=== PATIENT | male | born 1940 | race Hispanic/Latino ===

== ENCOUNTER 2018-09-03 16:45 | Emergency (ER) | payer MEDICARE ==
--- NOTE | 2018-09-03 18:46 | RAD ---
ACUTE ABDOMINAL SERIES: 09/03/2018 PROVIDED CLINICAL HISTORY: Pain. COMPARISON: None. FINDINGS: There is abnormal opacity present at the right lung apex, with an associated destructive process invo lving the posterior right third rib. Supraclavicular lymph node enlargement on the right may also be present. Pleural-based density at the right lateral hemithorax or inferiorly is also suspected. Ca rdiac and mediastinal silhouette are within normal limits. No pleural fluid or pneumothorax apparent . The abdominal bowel gas pattern is nonspecific. There is no evidence for pneumoperitoneum. Surgical clips overly the right lower abdomen. No radiographically apparent urinary tract calculi. IMPRESSION: 1. Abnormal opacities involving the right hemithorax with associated destruction involving the right posterior third rib, compatible with neoplasm. Correlation with chest CT is recommended. 2. Nonspecific bowel gas pattern. POS: [facility]
[2018-09-03 19:41] LABS: #Basophils 0.1 thou/uL (0.0-0.2); #Eosinphils 0.1 thou/uL (0.0-0.7); #Lymphocytes 2.8 thou/uL (1.20-3.40); #Monocytes 0.8 thou/uL (0.11-0.59); #Neutrophils 11.1 thou/uL (1.40-6.50); %Basophils 0.3 % (0.0-1.0); %Eosinophils 0.6 % (0.0-10.0); %Lymphocytes 18.7 % (21.0-51.0); %Monocytes 5.3 % (0.0-10.0); Hemoglobin 16.3 g/dL (14.0-18.0); Mean Corpuscular HGB CONC 34.1 g/dL (32.0-36.0); Mean Corpuscular Hemoglobin 30.4 pg (27.0-31.0); Mean Corpuscular Volume 89.1 fL (78.0-98.0); Platelet Count 259 thou/uL (130-400); RBC Distribution Width 12.4 % (11.5-14.5); Red Blood Cell (RBC) Count 5.35 mill/uL (4.70-6.10); White Blood Cell (WBC) Count 14.7 thou/uL (4.8-10.8)
[2018-09-03 20:01] LABS: Prothrombin Time 13.7 SEC (12.0-14.7)
[2018-09-03 20:02] LABS: ALT (SGPT) 29 U/L (8-55); AST (SGOT) 21 U/L (5-34); Albumin 4.1 g/dL (3.4-4.8); Alkaline Phosphatase 144 U/L (40-150); Anion Gap 20 mmol/L (10-20); BUN (Urea Nitrogen) 28 mg/dL (8.4-25.7); Bilirubin, Total 0.9 mg/dL (0.2-1.2); Calc. Creatinine Clearance 0 mL/min (70-130); Calcium 10.8 mg/dL (7.8-10.44); Carbon Dioxide 18 mmol/L (23-31); Chloride 97 mmol/L (98-107); Estimated GFR-MDRD 44; Globulin 3.5 g/dL (2.4-3.5); Glucose 348 mg/dL (83-110); PTT 30.6 SEC (22.9-36.1); Potassium 4.3 mmol/L (3.5-5.1); Protein, Total 7.6 g/dL (5.8-8.1); Sodium 131 mmol/L (136-145)
[2018-09-03 22:58] LABS: Anion Gap 14 mmol/L (10-20); BUN (Urea Nitrogen) 26 mg/dL (8.4-25.7); Calc. Creatinine Clearance 0 mL/min (70-130); Calcium 9.3 mg/dL (7.8-10.44); Carbon Dioxide 20 mmol/L (23-31); Chloride 102 mmol/L (98-107); Estimated GFR-MDRD 52; Glucose 304 mg/dL (83-110); Sodium 132 mmol/L (136-145)
== END 2018-09-03 23:34 | disposition home or self-care (01) ==
LOC: ERS 16:45
DX: K59.00 Constipation, unspecified (principal); E86.0 Dehydration; G89.29 Other chronic pain; E11.9 Type 2 diabetes mellitus without complications
CPT/HCPCS: 36415; 36416; 74022; 80053; 83605; 85025; 85610; 85730; 96360

== ENCOUNTER 2018-09-30 15:33 | Emergency (ER) | payer MEDICARE ==
[2018-09-30 16:26] LABS: #Basophils 0.1 thou/uL (0.0-0.2); #Eosinphils 0.3 thou/uL (0.0-0.7); #Lymphocytes 2.2 thou/uL (1.20-3.40); #Monocytes 0.5 thou/uL (0.11-0.59); #Neutrophils 7.9 thou/uL (1.40-6.50); %Basophils 0.5 % (0.0-1.0); %Eosinophils 2.5 % (0.0-10.0); %Lymphocytes 20.3 % (21.0-51.0); %Monocytes 4.8 % (0.0-10.0); %Neutrophils 71.9 % (42.0-75.0); Hemoglobin 15.5 g/dL (14.0-18.0); Mean Corpuscular HGB CONC 34.4 g/dL (32.0-36.0); Mean Corpuscular Hemoglobin 30.9 pg (27.0-31.0); Mean Corpuscular Volume 89.7 fL (78.0-98.0); Platelet Count 269 thou/uL (130-400); RBC Distribution Width 12.4 % (11.5-14.5); Red Blood Cell (RBC) Count 5.02 mill/uL (4.70-6.10)
[2018-09-30] MEDS ORDERED: Lidocaine Viscous Sol 2% 15 ml UD Cup ONE (16:35)
[2018-09-30 17:16] LABS: ALT (SGPT) 17 U/L (8-55); AST (SGOT) 27 U/L (5-34); Albumin 3.9 g/dL (3.4-4.8); Alkaline Phosphatase 161 U/L (40-150); Anion Gap 19 mmol/L (10-20); BUN (Urea Nitrogen) 16 mg/dL (8.4-25.7); Bilirubin, Total 0.5 mg/dL (0.2-1.2); Calc. Creatinine Clearance 0 mL/min (70-130); Calcium 10.2 mg/dL (7.8-10.44); Carbon Dioxide 20 mmol/L (23-31); Chloride 94 mmol/L (98-107); Estimated GFR-MDRD 52; Globulin 3.1 g/dL (2.4-3.5); Glucose 191 mg/dL (83-110); Potassium 4.9 mmol/L (3.5-5.1); Sodium 128 mmol/L (136-145)
== END 2018-09-30 19:19 | disposition home or self-care (01) ==
LOC: ERS 15:33
DX: K59.00 Constipation, unspecified (principal); E11.9 Type 2 diabetes mellitus without complications; Z79.899 Other long term (current) drug therapy
CPT/HCPCS: 80053; 83690; 84484; 85025; 93005; 96360; 96361